=== PATIENT | male | born 1970 | race Caucasian/White ===

== ENCOUNTER 2019-01-05 10:42 | Emergency (ER) | payer OTHER ==
[~2019-01-05] VITALS: Ht 183 cm; Wt 91.0 kg
--- NOTE | 2019-01-05 11:42 | ED Lower Extremity ---
General Chief Complaint: Lower Extremity Stated Complaint: L LEG PAIN Nursing Triage Note: Patient reports hurting his L leg about 1 week ago while chasing a cow. patient reports that it has become red and swollen in the foot and jimenez. Nursing Sepsis Screen: No Definite Risk Source: patient Exam Limitations: no limitations History of Present Illness Date Seen by Provider: Jan 05, 2019 Time Seen by Provider: 11:40 Initial Comments To ER with left anterior lower leg pain. This began a week ago when he was chasing a cow, scraped this on a metal post. Had some abrasions to the leg. Beginning 2 days ago he developed some pain. There is no pain initially. Along with the development of this pain 2 days ago was redness around the anterior leg at the site of the abrasions. Onset: just prior to arrival Severity: moderate Pain/Injury Location: left leg Method of Injury: fell Modifying Factors: Improves With Movement Allergies and Home Medications Allergies Coded Allergies: No Known Drug Allergies (Unverified , 01/05/19) Home Medications No Active Prescriptions or Reported Meds Patient Home Medication List Home Medication List Reviewed: Yes Review of Systems Constitutional: see HPI, chills EENTM: see HPI Respiratory: no symptoms reported Cardiovascular: no symptoms reported Genitourinary: no symptoms reported Musculoskeletal: no symptoms reported Skin: see HPI Psychiatric/Neurological: No Symptoms Reported Past Ptcudqz-Mfmsvl-Zpddlg Hx Patient Social History Alcohol Use: Occasionally Uses Alcohol Beverage of Choice: Beer Recreational Drug Use: No Type Used: Smokeless Tobacco Recent Foreign Travel: No Contact w/Someone Who Travel: No Recent Infectious Disease Expo: No Recent Hopitalizations: No Physical Abuse: No Sexual Abuse: No Mistreated: No Fear: No Past Medical History Surgeries: Yes (wisdom teeth) Respiratory: No Cardiac: No Neurological: No Genitourinary: No Gastrointestinal: No Musculoskeletal: No Endocrine: No HEENT: No Cancer: No Psychosocial: No Integumentary: No Blood Disorders: No Physical Exam Vital Signs Vital Signs - First Documented 01/05/19 11:33 Temp 37.0 Pulse 93 Resp 18 B/P (MAP) 109/60 (76) Pulse Ox 98 Capillary Refill : Less Than 3 Seconds Height, Weight, BMI Height: '" Weight: lbs. oz. kg; 27.00 BMI Method: General Appearance: WD/WN, no apparent distress HEENT: PERRL/EOMI, normal ENT inspection Neck: non-tender Respiratory: no respiratory distress, no accessory muscle use Hips: bilateral hip non-tender, bilateral hip normal inspection, bilateral hip normal range of motion Legs: right leg non-tender, right leg normal inspection, right leg normal range of motion; left leg other (as anteriorly surrounding the abrasions) Knees: bilateral knee non-tender, bilateral knee normal inspection, bilateral knee normal range of motion Ankles: right ankle non-tender, right ankle normal inspection, right ankle normal range of motion; left ankle pain, left ankle soft tissue tenderness, left ankle swelling, left ankle other Feet: bilateral foot non-tender, bilateral foot normal inspection, bilateral foot normal range of motion Neurologic/Psychiatric: alert, normal mood/affect, oriented x 3 Skin: normal color, warm/dry Progress/Results/Core Measures Results/Orders Lab Results Laboratory Tests Test 01/05/19 11:43 Range/Units White Blood Count 6.7 4.3-11.0 10^3/uL Red Blood Count 4.86 4.35-5.85 10^6/uL Hemoglobin 15.2 13.3-17.7 G/DL Hematocrit 43 40-54 % Mean Corpuscular Volume 88 80-99 FL Mean Corpuscular Hemoglobin 31 25-34 PG Mean Corpuscular Hemoglobin Concent 36 32-36 G/DL Red Cell Distribution Width 11.8 10.0-14.5 % Platelet Count 142 130-400 10^3/uL Mean Platelet Volume 9.7 7.4-10.4 FL Neutrophils (%) (Auto) 80 H 42-75 % Lymphocytes (%) (Auto) 9 L 12-44 % Monocytes (%) (Auto) 8 0-12 % Eosinophils (%) (Auto) 2 0-10 % Basophils (%) (Auto) 0 0-10 % Neutrophils # (Auto) 5.3 1.8-7.8 X 10^3 Lymphocytes # (Auto) 0.6 L 1.0-4.0 X 10^3 Monocytes # (Auto) 0.6 0.0-1.0 X 10^3 Eosinophils # (Auto) 0.2 0.0-0.3 10^3/uL Basophils # (Auto) 0.0 0.0-0.1 10^3/uL C-Reactive Protein High Sensitivity 2.07 H 0.00-0.50 MG/DL My Orders Orders - JEFF DAO APRN Cbc With Automated Diff (01/05/19 11:38) Hs C Reactive Protein (01/05/19 11:38) Ed Iv/Invasive Line Start (01/05/19 11:38) Ketorolac Injection (Toradol Injection) (01/05/19 11:45) Ceftriaxone For Iv Use (Rocephin For I (01/05/19 11:45) Hydrocodone/Apap 5/325 Tablet (Lortab 5 (01/05/19 11:45) Ankle, Left, 3 Views (01/05/19 11:38) Medications Given in ED Current Medications Medications Dose Ordered Sig/Hayden Route Start Time Stop Time Status Last Admin Dose Admin Acetaminophen/ Hydrocodone Bitart 1 tab ONCE ONCE PO 01/05/19 11:45 01/05/19 11:46 DC 01/05/19 11:55 1 TAB Ceftriaxone Sodium 1000 mg/ Sterile Water 10 ml @ 200 mls/hr ONCE ONCE IV 01/05/19 11:45 01/05/19 11:47 DC 01/05/19 12:12 200 MLS/HR Ketorolac Tromethamine 15 mg ONCE ONCE IVP 01/05/19 11:45 01/05/19 11:46 DC 01/05/19 11:55 15 MG Vital Signs/I&O 01/05/19 11:33 Temp 37.0 Pulse 93 Resp 18 B/P (MAP) 109/60 (76) Pulse Ox 98 Blood Pressure Mean: 76 POS Departure Impression Primary Impression: Cellulitis of left lower leg Disposition: 01 HOME, SELF-CARE Condition: Stable Departure-Patient Inst. Decision time for Depature: 12:32 Referrals: NO,LOCAL PHYSICIAN (PCP/Family) Primary Care Physician Patient Instructions: Cellulitis (Skin Infection), Adult (DC) Add. Discharge Instructions: 1. Return to ER for any concerns 2. Follow-up with primary care next week for recheck. Antibiotic as directed starting today. All discharge instructions reviewed with patient and/or family. Voiced understanding. Scripts Hydrocodone/Acetaminophen (Jones 5-325 Tablet) 1 Each Tablet 1 TAB PO Q4-6HR for Pain MDD 10 TABS for 7 Days, #10 TAB Prov: JEFF DAO APRN 01/05/19 Sulfamethoxazole/Trimethoprim (Bactrim Ds Tablet) 1 Each Tablet 1 EACH PO BID, #14 TAB Prov: JEFF DAO APRN 01/05/19 Cephalexin (Keflex) 500 Mg Capsule 500 MG PO QID, #28 CAP Prov: JEFF DAO APRN 01/05/19 Images Extremities-Lower 1 - JEFF DAO APRN Jan 05, 2019 11:42 POS
[2019-01-05] MEDS ORDERED: HYDROcodone/APAP 5 MG/325 MG (LORTAB) TAB PO ONE (11:45)
[2019-01-05] MEDS ORDERED: cefTRIAXone FOR IV USE 1,000 MG in WATER (STERILE) FOR INJECTION 10 ML IV ONE (11:45)
[2019-01-05] MEDS ORDERED: KETOROLAC 30 MG/ML VIAL IVP ONE (11:45)
[2019-01-05 11:53] LABS: BASOPHILS % (AUTO) 0 % (0-10); EOSINOPHILS # (AUTO) 0.2 10^3/uL (0.0-0.3); EOSINOPHILS % (AUTO) 2 % (0-10); HEMATOCRIT 43 % (40-54); HEMOGLOBIN 15.2 G/DL (13.3-17.7); LYMPHOCYTES # (AUTO) 0.6 X 10^3 (1.0-4.0); LYMPHOCYTES % (AUTO) 9 % (12-44); MEAN CORPUSCULAR HEMOGLOBIN 31 PG (25-34); MEAN CORPUSCULAR HGB CONC 36 G/DL (32-36); MEAN CORPUSCULAR VOLUME 88 FL (80-99); MEAN PLATELET VOLUME 9.7 FL (7.4-10.4); MONOCYTES # (AUTO) 0.6 X 10^3 (0.0-1.0); MONOCYTES % (AUTO) 8 % (0-12); NEUTROPHILS # (AUTO) 5.3 X 10^3 (1.8-7.8); NEUTROPHILS % (AUTO) 80 % (42-75); PLATELET COUNT 142 10^3/uL (130-400); RED CELL DISTRIBUTION WIDTH 11.8 % (10.0-14.5); WHITE BLOOD COUNT 6.7 10^3/uL (4.3-11.0)
--- NOTE | 2019-01-05 12:28 | Diagnostic Imaging Report ---
Indication: Left ankle pain. Comparison: None Findings: Three views of the ankle demonstrate no fracture or dislocation. Articular surfaces normal. No foreign body seen. Impression: Negative left ankle. Dictated by: Dictated on workstation # [id number]
[2019-01-05] MEDS ORDERED: CEPH-507 PO (12:34)
[2019-01-05] MEDS ORDERED: SULF1TAB35 PO (12:34)
[2019-01-05] MEDS ORDERED: HYDR-4226 PO (12:35)
[2019-01-05 12:46] VITALS: BP 109/60
--- OUTSIDE RECORDS SUMMARY | 2019-01-30 21:20 | XMS REPORT | Clinical Summary ---
Author Author Jeff Terrazas [facility] Address Unknown Phone Unavailable Allergies, Adverse Reactions, Alerts Allergy Name Reaction Description Start Date Severity Status Pr ovider No Known Allergies Mirna rodriguez Conditions or Problems Problem Name Problem Code Onset Date Status Entry Date Provider Comment Standard Description Annotate Urticaria, chronic 708.8 Active Nehemias Dickens MD Other specified urticaria Dysuria 788.1 Active Nico Bhakta MD Dysuria Medication List Medication Instructions Start Date Stop Date Generic Name NDC Status Provider Patient Instruction BACTRIM DS 800-160 MG TABS 1 twice a day for urinary infection 2015 SULFAMETHOXAZOLE-TRIMETHOPRIM 34570853722 Active Nehemias Dickens MD Active FLUTICASONE PROPIONATE 50 MCG/ACT SUSP 1 to 2 sprays each nostril d aily FLUTICASONE PROPIONATE 69833372391 Active Nehemias Dickens MD Active CIPRO 500 MG TAB 1 tablet by mouth twice daily CIPROFLOXACIN HCL 99490479822 No Longer Active Nico Bhakta MD Active BENADRYL ALLERGY 25 MG TABS 1 tab PO q 8 hours PRN 201 06/16/12 DIPHENHYDRAMINE HCL 74104692239 No Longer Active Nico Bhakta MD Active CIPRO 500 MG TAB 1 tablet by mouth twice daily for 10 days 10/07 CIPROFLOXACIN HCL 67140538370 No Longer Active Nico Bhakta MD Active LORATADINE 10 MG TABS 1 tablet by mouth daily L ORATADINE 11074814258 Active Nehemias Dickens MD Active CIPRO 500 MG TAB 1 tablet by mouth twice daily for 10 days 10/07 CIPRO 500 MG TAB 689889 CIPROFLOXACIN HCL Inactive BENADRYL ALLERGY 25 MG TABS 1 tab PO q 8 hours PRN 201 06/16/12 BENADRYL ALLERGY 25 MG TABS 1382878 DIPHENHYDRAMINE HCL Inactive CIPRO 500 MG TAB 1 tablet by mouth twice daily CIPRO 500 MG TAB 792269 CIPROFLOXACIN HCL Inactive Vital Signs Date Name Value Unit Range Description blood pressure, diastolic - 8462-4 81 mm[Hg] BP duran blood pressure, systolic - 8480-6 114 mm[Hg] BP sys pulse rate E&M - 8867-4 56 /min H eart rate weight E&M - 3141-9 207 [lb_av] Weigh t Measured Encounters Code Encounter Date Provider Facility CPT-07874 Level 3 Est. Patient 15:57:08 MATTRESS MAKER Nehemias Dickens MD [facility] CPT-66210 Level 3 Est. Patient 16:42:11 MATTRESS MAKER Nico frances MD [facility] CPT-90362 Level 2 New Patient 17:54:59 MATTRESS MAKER Nehemias ann MD [facility]
--- OUTSIDE RECORDS SUMMARY | 2019-01-30 21:20 | XMS REPORT | Clinical Summary ---
Author Author Jeff Terrazas Organization [facility] Address Unknown Phone Unavailable Allergies, Adverse Reactions, Alerts Allergy Name Reaction Description Start Date Severity Status Pr ovider Allergies Unknown Conditions or Problems Problem Name Problem Code Onset Date Status Entry Date Provider Comment Standard Description Annotate Urticaria, chronic 708.8 Active Nehemias Dickens MD Other specified urticaria Medication List Medication Instructions Start Date Stop Date Generic Name NDC Status Provider Patient Instruction CIPRO 500 MG TAB 1 tablet by mouth twice daily for 10 days CIPROFLOXACIN HCL 74364921170 Active Shala Marie Active LORATADINE 10 MG TABS 1 tablet by mouth daily L ORATADINE 19740824275 Active Nehemias Dickens MD Active BENADRYL ALLERGY 25 MG TABS 1 tab PO q 8 hours PRN DIPHENHYDRAMINE HCL 31418451169 Active Nehemias Dickens MD Active Encounters Code Encounter Date Provider Facility CPT-95435 Level 2 New Patient 17:54:59 LONG TERM CARE PHARMACIST Nehemias ann MD [facility]
--- OUTSIDE RECORDS SUMMARY | 2019-01-30 21:20 | XMS REPORT | Clinical Summary ---
Author Author Jeff Terrazas [facility] Address Unknown Phone Unavailable Allergies, Adverse [...] a day for urinary infection 2015 SULFAMETHOXAZOLE-TRIMETHOPRIM 33970463314 Active Nehemias Dickens MD Active FLUTICASONE PROPIONATE 50 MCG/ACT SUSP 1 to 2 sprays each nostril d aily FLUTICASONE PROPIONATE 66504103948 Active Nehemias Dickens MD Active CIPRO 500 MG TAB 1 tablet by mouth twice daily CIPROFLOXACIN HCL 57095247513 No Longer Active Nico Bhakta MD Active BENADRYL ALLERGY 25 MG TABS 1 tab PO q 8 hours PRN 201 06/16/12 DIPHENHYDRAMINE HCL 52066749445 No Longer Active Nico Bhakta MD Active CIPRO 500 MG TAB 1 tablet by mouth twice daily for 10 days 10/07 CIPROFLOXACIN HCL 45628746025 No Longer Active Nico Bhakta MD Active LORATADINE 10 MG TABS 1 tablet by mouth daily L ORATADINE 64551917241 Active Nehemias Dickens MD Active CIPRO 500 MG TAB 1 tablet by mouth twice daily for 10 days 10/07 CIPRO 500 MG TAB 135120 CIPROFLOXACIN HCL Inactive BENADRYL ALLERGY 25 MG TABS 1 tab PO q 8 hours PRN 201 06/16/12 BENADRYL ALLERGY 25 MG TABS 5542557 DIPHENHYDRAMINE HCL Inactive CIPRO 500 MG TAB 1 tablet by mouth twice daily CIPRO 500 MG TAB 922049 CIPROFLOXACIN HCL Inactive Vital Signs Date Name Value Unit Range Description blood pressure, diastolic - 8462-4 81 mm[Hg] BP duran blood pressure, systolic - 8480-6 114 mm[Hg] BP sys pulse rate E&M - 8867-4 56 /min H eart rate weight E&M - 3141-9 207 [lb_av] Weigh t Measured Diagnostic Results Date Name Value Unit Range Description Lab Report: UADIP W/MICRO, AUTO - Chemis try protein, total urine random Negative mg/dL Negative RBC, urine, dipstick Negative Negative Lab Report: UADIP W/MICRO, AUTO - Urinal ysis urobilinogen, urine, semiquantitative (dipstick) 0.2 Normal leukocyte esterase, urine, by dipstick Negative Negative nitrite, urine, semiquantitative Negative Neg ative glucose, urine, semiquantitative Negative Neg ative ketones, urine, by test strip Negative Negati ve bilirubin, urine Negative Negative urine color Yellow Colorless;Lightyellow;St raw;Yellow appearance, urine Clear Clear specific gravity, urine 1.010 1.000-1.030 pH, urine, semiquantitative 7.0 5.0-8.5 Encounters Code Encounter Date Provider Facility CPT-44971 Level 3 Est. Patient 15:57:08 CHANNEL SUPERVISOR Nehemias Dickens MD [facility] CPT-84737 Level 3 Est. Patient 16:42:11 CHANNEL SUPERVISOR Nico frances MD [facility] CPT-86397 Level 2 New Patient 17:54:59 CHANNEL SUPERVISOR Nehemias ann MD [facility]
--- OUTSIDE RECORDS SUMMARY | 2019-01-30 21:20 | XMS REPORT ---
Author Author [facility] Medic al SAWYER Farah Organization [facility] Address [address], [place] [address] Phone [phone] Care Team Providers Care Web Press Operator Apprentice Name Role Phone JAYME VALENCIA MD PP [phone] Summary purpose TRANSITION OF CARE AUTO GENERATION Chief Complaint and Reason for Visit No authorized Reason for Visit (Admitting Diagnosis) is available for this visit . Problem list No authorized problems tracked for continuity of care are available for this vis it. Encounters No authorized problems tracked for encounter diagnoses are available for this vi sit. Medications No medications recorded for this patient visit Allergies, adverse reactions, alerts Allergen Category Ingredient Status Reaction Severity Onset No known drug allergies No known drug allergies No known drug al lergies Confirmed or Verified Immunizations No immunizations recorded for this patient visit Relevant diagnostic tests and/or laboratory data No authorized results are available for this patient visit History of procedures No procedures recorded for this patient visit. Functional status Functional Status Finding Observation Time Ambulation Asst Dev none :05 Abdomen Appearance flat :05 Bowel Sounds present :05 Lyon no :05 Urination normal :05 Quality sym/unlabored :05 Cough absent :05 Secretions no :05 Secretion Consist thin :05 Secretion Color clear :05 Breath Sounds RUL clear :05 Breath Sounds RML clear :05 Breath Sounds RLL clear :05 Breath Sounds DONOVAN clear :05 Breath Sounds LLL clear :05 Airway natural :05 Oxygen no :05 Temp >100.4 no :05 Temp <96.8 no :05 Chills with rigors no :05 HR > 90bpm no :05 Respirations > 20 no : Systolic <90 no :05 headache stiff neck no :05 Rapid Resp no :05 Nursing Note Dismissed home per Dr Paul. Discharge instructions given and understood by pt and spouse who verbalized understanding. Ambulated to exit in stable condition. : Vital signs Type Value Date Respiration Rate 20breaths per minute : Pulse 86beats per minute Oxygen Saturation 100% : BP Systolic 128mmHg : BP Diastolic 78mmHg : Temperature 98.2F :00 Weight 207.2LB :00 Social history No Social History or smoking status observations were recorded for this visit. ( Unknown if ever smoked.) Treatment Plan No treatment plan text is available for this visit. Hospital discharge instructions Dismissal Condition good Disposition on DC home DC Inst/Educ Give yes Med/Side Effects Rev yes Flu Vac 2013
--- OUTSIDE RECORDS SUMMARY | 2019-01-30 21:20 | XMS REPORT | Clinical Summary ---
Author Author Jeff Terrazas [facility] Address Unknown Phone Unavailable Allergies, Adverse Reactions, Alerts Allergy Name Reaction Description Start Date Severity Status Pr ovider No Known Allergies Chino Abbott MA Conditions or Problems Problem Name Problem Code Onset Date Status Entry Date Provider Comment Standard Description Annotate Urticaria, chronic 708.8 Active Nehemias Dickens MD Other specified urticaria Dysuria 788.1 Active Nico Bhakta MD Dysuria Prostatitis-Acute Active Samira Bowens MD Acute prostatitis Prostatitis-Chronic Active Samira valadez MD Chronic prostatitis Medication List Medication Instructions Start Date Stop Date Generic Name NDC Status Provider Patient Instruction FLOMAX 0.4 MG ORAL CAPS Take one by mouth daily TAMSULOSIN HCL 11247466025 Active Samira Bowens MD Active BACTRIM DS 800-160 MG TABS 1 twice a day for urinary infection 2015 SULFAMETHOXAZOLE-TRIMETHOPRIM 58324981779 Active Nehemias Dickens MD Active FLUTICASONE PROPIONATE 50 MCG/ACT SUSP 1 to 2 sprays each nostril d aily FLUTICASONE PROPIONATE 71368047957 Active Nehemias Dickens MD Active CIPRO 500 MG TAB 1 tablet by mouth twice daily CIPROFLOXACIN HCL 78115483137 No Longer Active Nico Bhakta MD Active BENADRYL ALLERGY 25 MG TABS 1 tab PO q 8 hours PRN 201 06/16/12 DIPHENHYDRAMINE HCL 69867427191 No Longer Active Nico Bhakta MD Active CIPRO 500 MG TAB 1 tablet by mouth twice daily for 10 days 10/07 CIPROFLOXACIN HCL 89969639244 No Longer Active Nico Bhakta MD Active LORATADINE 10 MG TABS 1 tablet by mouth daily L ORATADINE 60699516527 Active Nehemias Dickens MD Active CIPRO 500 MG TAB 1 tablet by mouth twice daily for 10 days 10/07 CIPRO 500 MG TAB 458364 CIPROFLOXACIN HCL Inactive BENADRYL ALLERGY 25 MG TABS 1 tab PO q 8 hours PRN 201 06/16/12 BENADRYL ALLERGY 25 MG TABS 2911781 DIPHENHYDRAMINE HCL Inactive CIPRO 500 MG TAB 1 tablet by mouth twice daily CIPRO 500 MG TAB 560954 CIPROFLOXACIN HCL Inactive Vital Signs Date Name Value Unit Range Description blood pressure, diastolic - 8462-4 76 mm[Hg] BP duran blood pressure, systolic - 8480-6 110 mm[Hg] BP sys pulse rate E&M - 8867-4 65 /min H eart rate temperature E&M 98.6 [degF] Body temp erature weight E&M - 3141-9 209.5 [lb_av] Weigh t Measured blood pressure, diastolic - 8462-4 81 mm[Hg] [...] 5.0-8.5 Encounters Code Encounter Date Provider Facility CPT-53747 Level 3 New Patient 16:54:53 SEAPORT PLANNING MANAGER Samira salcido MD [facility] CPT-52097 Level 3 Est. Patient 15:57:08 SEAPORT PLANNING MANAGER Nehemias Dickens MD [facility] CPT-58230 Level 3 Est. Patient 16:42:11 SEAPORT PLANNING MANAGER Nico frances MD [facility] CPT-82520 Level 2 New Patient 17:54:59 SEAPORT PLANNING MANAGER Nehemias ann MD [facility] Procedures Code Procedure Name Date Entry Date Standard Desc ription CPT-57324 Bladder Scan 16:54:52 SEAPORT PLANNING MANAGER
--- OUTSIDE RECORDS SUMMARY | 2019-01-30 21:20 | XMS REPORT | Clinical Summary ---
Author Author Jeff Terrazas Organization [facility] Address Unknown Phone Unavailable Allergies, Adverse Reactions, [...] twice daily for 10 days CIPROFLOXACIN HCL 13681930225 Active Shala Marie Active LORATADINE 10 MG TABS 1 tablet by mouth daily L ORATADINE 70054974441 Active Nehemias Dickens MD Active BENADRYL ALLERGY 25 MG TABS 1 tab PO q 8 hours PRN DIPHENHYDRAMINE HCL 14017081965 Active Nehemias Dickens MD Active Encounters Code Encounter Date Provider Facility CPT-86363 Level 2 New Patient 17:54:59 LOADING RACK SUPERVISOR Nehemias ann MD [facility]
--- OUTSIDE RECORDS SUMMARY | 2019-01-30 21:20 | XMS REPORT | Clinical Summary ---
Author Author Jeff Terrazas [facility] Address Unknown Phone Unavailable Allergies, Adverse Reactions, [...] a day for urinary infection 2015 SULFAMETHOXAZOLE-TRIMETHOPRIM 35172470296 Active Nehemias Dickens MD Active FLUTICASONE PROPIONATE 50 MCG/ACT SUSP 1 to 2 sprays each nostril d aily FLUTICASONE PROPIONATE 46942234857 Active Nehemias Dickens MD Active CIPRO 500 MG TAB 1 tablet by mouth twice daily CIPROFLOXACIN HCL 81603093648 No Longer Active Nico Bhakta MD Active BENADRYL ALLERGY 25 MG TABS 1 tab PO q 8 hours PRN 201 06/16/12 DIPHENHYDRAMINE HCL 82182517147 No Longer Active Nico Bhakta MD Active CIPRO 500 MG TAB 1 tablet by mouth twice daily for 10 days 10/07 CIPROFLOXACIN HCL 03467566425 No Longer Active Nico Bhakta MD Active LORATADINE 10 MG TABS 1 tablet by mouth daily L ORATADINE 56980778456 Active Nehemias Dickens MD Active CIPRO 500 MG TAB 1 tablet by mouth twice daily for 10 days 10/07 CIPRO 500 MG TAB 682325 CIPROFLOXACIN HCL Inactive BENADRYL ALLERGY 25 MG TABS 1 tab PO q 8 hours PRN 201 06/16/12 BENADRYL ALLERGY 25 MG TABS 0615558 DIPHENHYDRAMINE HCL Inactive CIPRO 500 MG TAB 1 tablet by mouth twice daily CIPRO 500 MG TAB 852373 CIPROFLOXACIN HCL Inactive Vital Signs Date Name [...] 5.0-8.5 Encounters Code Encounter Date Provider Facility CPT-69303 Level 3 Est. Patient 15:57:08 GUT DROPPER Nehemias Dickens MD [facility] CPT-41272 Level 3 Est. Patient 16:42:11 GUT DROPPER Nico frances MD [facility] CPT-12181 Level 2 New Patient 17:54:59 GUT DROPPER Nehemias ann MD [facility]
--- OUTSIDE RECORDS SUMMARY | 2019-01-30 21:20 | XMS REPORT ---
Author Author [facility] Medic al SAWYER Farah Organization [facility] Address [address], [place] [address] Phone [phone] Summary purpose TRANSITION OF CARE AUTO GENERATION [...] this patient visit Allergies, adverse reactions, alerts No allergy information is available for this patient. Immunizations No immunizations recorded for this patient visit Relevant diagnostic tests and/or laboratory data RESULTS Semen Analysis - Fertility [id number]:00 Result Normal Range Units Volume 1.5 1.5-5.0 ml pH 8 Appearance Hazy Hazy Morphology L 36 70-100 % Semen Other 83 60-100 % Sperm Count 113.00 60-150 Liquification AB Greater than 30 minutes History of procedures No procedures recorded for this patient visit. Functional status No functional or cognitive status observations are available for this visit. Vital signs No authorized vital signs are available for this visit. Social history No Social History or smoking status observations were recorded for this visit. ( Unknown if ever smoked.) Treatment Plan No treatment plan text is available for this visit. Hospital discharge instructions No discharge instruction text is available for this visit.
--- OUTSIDE RECORDS SUMMARY | 2019-01-30 21:20 | XMS REPORT | Clinical Summary ---
Author Author Jeff Terrazas [employer] Address Unknown Phone Unavailable Allergies, Adverse Reactions, Alerts Allergy Name Reaction Description Start Date Severity Status Pr ovider No Known Allergies Sharla Elder Conditions or Problems Problem Name Problem Code [...] Take one by mouth daily TAMSULOSIN HCL 44284576202 Active Samira Bowens MD Active BACTRIM DS 800-160 MG TABS 1 twice a day for urinary infection 2015 SULFAMETHOXAZOLE-TRIMETHOPRIM 71015936499 Active Nehemias Dickens MD Active FLUTICASONE PROPIONATE 50 MCG/ACT SUSP 1 to 2 sprays each nostril d ailsinai FLUTICASONE PROPIONATE 59406521835 Active Nehemias Dickens MD Active CIPRO 500 MG TAB 1 tablet by mouth twice daily CIPROFLOXACIN HCL 00804840509 No Longer Active Nico Bhakta MD Active BENADRYL ALLERGY 25 MG TABS 1 tab PO q 8 hours PRN 201 06/16/12 DIPHENHYDRAMINE HCL 95624454993 No Longer Active Nico Bhakta MD Active CIPRO 500 MG TAB 1 tablet by mouth twice daily for 10 days 10/07 CIPROFLOXACIN HCL 38457761874 No Longer Active Nico Bhakta MD Active LORATADINE 10 MG TABS 1 tablet by mouth daily L ORATADINE 43524131855 Active Nehemias Dickens MD Active CIPRO 500 MG TAB 1 tablet by mouth twice daily for 10 days 10/07 CIPRO 500 MG TAB 894524 CIPROFLOXACIN HCL Inactive BENADRYL ALLERGY 25 MG TABS 1 tab PO q 8 hours PRN 201 06/16/12 BENADRYL ALLERGY 25 MG TABS 1272419 DIPHENHYDRAMINE HCL Inactive CIPRO 500 MG TAB 1 tablet by mouth twice daily CIPRO 500 MG TAB 046275 CIPROFLOXACIN HCL Inactive Vital Signs Date Name Value Unit Range Description blood pressure, diastolic - 8462-4 73 mm[Hg] BP duran blood pressure, systolic - 8480-6 109 mm[Hg] BP sys pulse rate E&M - 8867-4 63 /min H eart rate temperature E&M 97.5 [degF] Body temp erature weight E&M - 3141-9 208.5 [lb_av] Weigh t Measured blood pressure, diastolic - 8462-4 76 mm[Hg] [...] 1.010 1.000-1.030 pH, urine, semiquantitative 7.0 5.0-8.5 Office Visit: CN-dysuria - Chemistry RBC, urine, dipstick non-hemolyzed trace protein, total urine random negative mg/dL Office Visit: CN-dysuria - Urinalysis pH, urine, semiquantitative 5 specific gravity, urine 1.015 urinalysis, routine Clean Catch culture status No ketones, urine, by test strip negative bilirubin, urine negative glucose, urine, semiquantitative negative urine color yellow appearance, urine clear leukocyte esterase, urine, by dipstick negative nitrite, urine, semiquantitative negative urobilinogen, urine, semiquantitative (dipstick) negative protein, urine, semiquantitative (dipstick) negative Encounters Code Encounter Date Provider Facility CPT-70632 Level 3 New Patient 16:54:53 COST ACCOUNTING ANALYST Samira salcido MD [facility] CPT-49485 Level 3 Est. Patient 15:57:08 COST ACCOUNTING ANALYST Nehemias Dickens MD [facility] CPT-65990 Level 3 Est. Patient 16:42:11 COST ACCOUNTING ANALYST Nico frances MD [facility] CPT-84798 Level 2 New Patient 17:54:59 COST ACCOUNTING ANALYST Nehemias ann MD [facility] Procedures Code Procedure Name Date Entry Date Standard Desc ription CPT-80337 Bladder Scan 16:54:52 COST ACCOUNTING ANALYST
--- OUTSIDE RECORDS SUMMARY | 2019-01-30 21:20 | XMS REPORT ---
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
--- OUTSIDE RECORDS SUMMARY | 2019-01-30 21:20 | XMS REPORT ---
Author Author [facility] SAWYER Farah Organization [employer] [facility] Address [address] [place], [place] [address] Phone [phone] Summary purpose TRANSITION OF CARE AUTO GENERATION [...] laboratory data RESULTS [facility] - Fertility [id number] Result Normal Range Units Volume 1.5 1.5-5.0 [...]
--- OUTSIDE RECORDS SUMMARY | 2019-01-30 21:20 | XMS REPORT ---
Author Author [facility] SAWYER Farah Organization [facility] Address [address] [place], [place] [address] Phone [phone] Care Team Providers Care Sleeping Room Cleaner Name Role Phone JAYME VALENCIA MD PP [phone] Summary purpose TRANSITION OF CARE AUTO GENERATION Chief Complaint and Reason for Visit Admit Diagnosis 1 INSECT BITE HIP LEG Problem list No authorized problems tracked for [...] for this patient visit History of procedures Procedure Code Code Type Description Date Performed Performing Physician 32744 CPT-4 EMERGENCY DEPT VISIT 10-28-2014 PATEL PAUL 75809 CPT-4 EMERGENCY DEPT VISIT 10-28-2014 PATEL PAUL Functional status Functional Status Finding Observation Time [...] Breath Sounds LLL clear :05 Airway natural [id number] Oxygen no :05 Temp >100.4 no :05 Temp <96.8 no :05 Chills with rigors no :05 HR > 90bpm no :05 Respirations > 20 no :05 Systolic <90 no :05 headache stiff neck no :05 Rapid Resp no :05 Nursing Note Dismissed home per Dr Paul. Discharge instructions given and understood by pt and spouse who verbalized understanding. Ambulated to exit in stable condition. : Vital signs Type Value Date Respiration Rate 20breaths per minute : Pulse 86beats per minute : Oxygen Saturation 100% : BP Systolic 128mmHg :00 BP Diastolic 78mmHg : Temperature 98.2F : Weight 207.2LB :00 Social history No Social History or smoking status observations were recorded for this visit. ( Unknown if ever smoked.) Treatment Plan No treatment plan text is available for this visit. Hospital discharge instructions Dismissal Condition good Disposition on DC home DC Inst/Educ Give yes Med/Side Effects Rev yes Flu Vac 2013
== END 2019-01-05 12:46 | disposition home or self-care (01) ==
LOC: EDUNIT# 10:42 → ER 10:43
DX: L03.116 Cellulitis of left lower limb (principal)
CPT/HCPCS: 36415; 73610; 85025; 86141; 96365; 96375